=== PATIENT | female | born 1995 | race American Indian/Alaskan Native ===

== ENCOUNTER 2018-04-18 19:52 | Emergency (ER) | payer MEDICAID ==
[2018-04-18 20:00] VITALS: BP 131/83
--- NOTE | 2018-04-18 20:35 | Emergency Department Report ---
Minor Respiratory - HPI Chief Complaint: Syncope Stated Complaint: FEELING FAINT Time Seen by Provider: 04/18/18 20:35 Pain Location: Throat Severity: mild Minor Respiratory: Yes Rhinorrhea, Yes Sore Throat (2/10 and worse with swallowing.), Yes Able to Tolerate Fluids, Yes Cough (congested cough), No Ear Pain, No Sick Contacts, No Hemoptysis, No Chest Pain (palpitations after drinking red bull and smoke in marijuana), No Shortness of Breath, No Fever Other History: This is a 22-year-old female here presented to the emergency room reported productive cough, runny nose, swollen lymph nodes. Patient's that she drank red bull at 5 PM and had not eaten since noon. She said after drinking red bull started feeling faint recent hard at approximately 1940. She denies passing out. Denies any headache or blurred vision. Denies any chest pain or shortness of breath. Denies any nausea or vomiting. Denies any abdominal pain or back pain. Patient said she is losing her voice due to cough . She also said that she smokes marijuana yesterday. Pain is 2/10 worse with swallowing and coughing and no pain without swelling or coughing. Last menstrual period was 04/10/2018. Patient has a history of gestational diabetes otherwise healthy. ED Review of Systems ROS: Stated complaint: FEELING FAINT Other details as noted in HPI Constitutional: denies: chills, fever Eyes: denies: eye pain, eye discharge, vision change ENT: throat pain, congestion. denies: ear pain, dental pain, epistaxis Respiratory: cough. denies: shortness of breath, SOB with exertion, SOB at rest, stridor, wheezing Cardiovascular: palpitations. denies: chest pain, edema, syncope Gastrointestinal: denies: abdominal pain, nausea, vomiting Skin: denies: rash Neurological: denies: headache, numbness, paresthesias, confusion, abnormal gait, vertigo ED Past Medical Hx - Past Medical History Previous Medical History?: Yes Hx Diabetes: Yes (gestational) - Surgical History Past Surgical History?: No - Family History Family history: hypertension (early) - Social History Smoking Status: Current Every Day Smoker Substance Use Type: Alcohol, Marijuana - Medications Home Medications: Home Medications Medication Instructions Recorded Confirmed Last Taken Type Amoxicillin/K Clav Tab [Augmentin 1 tab PO Q12HR #20 tab 04/18/18 Unknown Rx 875MG TAB] Cetirizine HCl [ZyrTEC] 10 mg PO QAM 14 Days #14 capsule 04/18/18 Unknown Rx Fluticasone [Flonase] 1 spray NS QDAY 14 Days #1 bottle 04/18/18 Unknown Rx Minor Respiratory Exam - Exam General: Vital signs noted. No distress. Alert and acting appropriately. This is a 22-year-old female well-nourished well-developed in no acute distress. HEENT: Yes Moist Mucous Membranes (uvula is midline and oral airways patent), Yes Rhinorrhea (nasal congestion and runny nose), Yes Frontal Tenderness, No Pharyngeal Erythema, No Pharyngeal Exudates, No Conjuctival Injection, No Maxillary Tenderness Ear: Neither TM Bulge (bilateral team congested), Neither TM Erythema, Neither EAC Pain, Neither EAC Discharge Neck: Yes Supple (for range of motion and no C-spine tenderness), No Adenopathy Lungs: Yes Good Air Exchange, Yes Cough (dry cough), No Wheezes, No Ronchi, No Stridor, No Labored Respirations, No Retractions, No Use of Accessory Muscles, No Other Abnormal Lung Sounds Heart: Yes Regular (sinus rhythm at 100 bpm), No Murmur Abdomen: Yes Normal Bowel Sounds (in all quadrants), No Tenderness (nontender to palpate in all quadrants), No Peritoneal Signs Skin: No Rash, No Edema Neurologic: Alert and oriented 3, GCS of 15, speech is clear and fluid, normal gait, negative Romberg and pronator drift, reflexes are normal and no sensory or motor deficit. Musculoskeletal: Unremarkable. No cce. + 2 pulses in all extremities, no neurovascular compromise ED Course Vital Signs 04/18/18 19:59 Temperature 99.0 F Pulse Rate 105 H Respiratory 18 Rate Blood Pressure 131/83 O2 Sat by Pulse 97 Oximetry EKG heart rate is at 100 bpm. - Reevaluation(s) Reevaluation #1: 04/18/18 21:21 Patient given Decadron 10 mg IM and emergency room for sinusitis ED Medical Decision Making - EKG Data -: EKG Interpreted by Me (attending physician) EKG shows normal: sinus rhythm Rate: tachycardia (100 beats per minutes) - EKG Data Interpretation: no acute changes, normal EKG - Medical Decision Making This is a 22-year-old female here report that she has been having in a versus her symptoms over the last week. She was found to have acute bacterial sinusitis with coughing. She had brief episode of dizziness without syncope after drinking a red bull and smoking marijuana but that has cleared up. Noel lambert is able to tolerate oral liquids and she is neurologically intact. Patient was given Decadron 10 mg IM and emergency room and discharged home in stable condition with prescription for Z-Hernesto, Flonase and Zyrtec and to follow up with her primary care physician and 2-3 days and if she does not have a primary care physician to follow-up at [facility] [place]. I encouraged her to refrain from drinking red bull and smoking marijuana and she said ok. - Differential Diagnosis sinusitis, strep pharyngitis, URI,cough and congestion. Pulmonary abdomen: Critical care attestation.: If time is entered above; I have spent that time in minutes in the direct care of this critically ill patient, excluding procedure time. ED Disposition Clinical Impression: Acute bacterial rhinosinusitis Disposition: - TO HOME OR SELFCARE Is pt being admited?: No Does the pt Need Aspirin: No Condition: Stable Instructions: Acute Bacterial Rhinosinusitis (ED) Additional Instructions: Please flush nostrils with saline nasal washes at least 3 times a day Follow-up with primary care physician in 2-3 days and if he do not have a primary care physician follow-up with outside Medical Center If his symptoms return or worsens, return to the emergency room Take medication as prescribed Referrals: [facility] [Outside] - 2-3 Days Forms: Work/School Release Form(ED)
[2018-04-18] MEDS ORDERED: DECADRON IM ONE (20:41)
[2018-04-18 21:13] LABS: Bilirubin,Urine NEG (Negative); Blood,Urine NEG (Negative); Color,Urine Yellow (Yellow); Mucus,Urine FEW /HPF; Protein,Urine <15 mg/dL mg/dL (Negative); Urobilinogen,Urine < 2.0 mg/dL (<2.0); WBC,Urine < 1.0 /HPF (0.0-6.0)
[2018-04-18 21:29] LABS: HCG Qualitative,Urine Negative (Negative)
== END 2018-04-18 21:37 | disposition home or self-care (01) ==
LOC: ED 19:52
DX: J01.90 Acute sinusitis, unspecified (principal); E11.9 Type 2 diabetes mellitus without complications; F17.200 Nicotine dependence, unspecified, uncomplicated
CPT/HCPCS: 81001; 81025; 93005; 93010; 96372; 99283

== ENCOUNTER 2018-06-04 01:29 | Emergency (ER) | payer MEDICAID ==
[2018-06-04 01:35] VITALS: BP 145/88
--- NOTE | 2018-06-04 02:53 | XRay Report ---
PROCEDURE: XR CHEST 1V AP TECHNIQUE: Chest radiograph single view. HISTORY: Chest Pain COMPARISONS: None . FINDINGS: Heart: Normal. Mediastinum/Vessels: Normal. Lungs/Pleural space: Normal. Bony thorax: No acute osseous abnormality. Life support devices: None. IMPRESSION: No acute cardiopulmonary abnormality. This document is electronically signed by Bao Serrano MD., June 04 2018 02:51:27 AM ET
== END 2018-06-04 03:45 | disposition left against medical advice (07) ==
LOC: ED 01:29
DX: R07.89 Other chest pain (principal); Z53.21 Procedure and treatment not carried out due to patient leaving prior to being seen by health care provider
CPT/HCPCS: 71045; 93005; 93010

== ENCOUNTER 2018-06-20 11:31 | Emergency (ER) | payer MEDICAID ==
[2018-06-20 11:56] VITALS: BP 143/75
--- NOTE | 2018-06-20 13:50 | Emergency Department Report ---
ED General Adult HPI - General Chief complaint: Skin Rash Stated complaint: SPIDER BITE Time Seen by Provider: 06/20/18 13:49 Source: patient Mode of arrival: Ambulatory Limitations: No Limitations - History of Present Illness Initial comments: Patient is a 18-year-old female with significant past medical history who presents with left ankle pain going on since yesterday. Patient states that she believes she was bitten by an insect and that she is having some mild pain 3 out of 10 in the left ankle. She is also complaining of having a minor headache as well. Patient has no nausea no vomiting no neck pain fevers chills. Severity scale (0 -10): 7 - Related Data Previous Rx's Medication Instructions Recorded Last Taken Type Amoxicillin/K Clav Tab [Augmentin 1 tab PO Q12HR #20 tab 04/18/18 Unknown Rx 875MG TAB] Cetirizine HCl [ZyrTEC] 10 mg PO QAM 14 Days #14 capsule 04/18/18 Unknown Rx Fluticasone [Flonase] 1 spray NS QDAY 14 Days #1 bottle 04/18/18 Unknown Rx cephALEXin [Keflex] 500 mg PO Q6HR #20 capsule 06/20/18 Unknown Rx Allergies Allergy/AdvReac Type Severity Reaction Status Date / Time No Known Allergies Allergy Unverified 04/18/18 20:05 ED Review of Systems ROS: Stated complaint: SPIDER BITE Other details as noted in HPI Constitutional: denies: chills, fever Eyes: denies: eye pain, eye discharge, vision change ENT: denies: ear pain, throat pain Respiratory: denies: cough, shortness of breath, wheezing Cardiovascular: denies: chest pain, palpitations Endocrine: no symptoms reported Gastrointestinal: denies: abdominal pain, nausea, diarrhea Genitourinary: denies: urgency, dysuria, discharge Musculoskeletal: denies: back pain, joint swelling, arthralgia Skin: rash. denies: lesions Neurological: denies: headache, weakness, paresthesias Psychiatric: denies: anxiety, depression Hematological/Lymphatic: denies: easy bleeding, easy bruising ED Past Medical Hx - Past Medical History Hx Diabetes: Yes (gestational) - Surgical History Past Surgical History?: No - Social History Smoking Status: Never Smoker Substance Use Type: None - Medications Home Medications: Home Medications Medication Instructions Recorded Confirmed Last Taken Type Amoxicillin/K Clav Tab [Augmentin 1 tab PO Q12HR #20 tab 04/18/18 Unknown Rx 875MG TAB] Cetirizine HCl [ZyrTEC] 10 mg PO QAM 14 Days #14 capsule 04/18/18 Unknown Rx Fluticasone [Flonase] 1 spray NS QDAY 14 Days #1 bottle 04/18/18 Unknown Rx cephALEXin [Keflex] 500 mg PO Q6HR #20 capsule 06/20/18 Unknown Rx ED Physical Exam - General Limitations: No Limitations General appearance: alert, in no apparent distress - Head Head exam: Present: atraumatic, normocephalic - Eye Eye exam: Present: normal appearance - ENT ENT exam: Present: mucous membranes moist - Neck Neck exam: Present: normal inspection - Respiratory Respiratory exam: Present: normal lung sounds bilaterally. Absent: respiratory distress - Cardiovascular Cardiovascular Exam: Present: regular rate, normal rhythm. Absent: systolic murmur, diastolic murmur, rubs, gallop - GI/Abdominal GI/Abdominal exam: Present: soft, normal bowel sounds - Extremities Exam Extremities exam: Present: normal inspection - Back Exam Back exam: Present: normal inspection - Neurological Exam Neurological exam: Present: alert, oriented X3 - Psychiatric Psychiatric exam: Present: normal affect, normal mood - Skin Skin exam: Present: warm, dry, intact, normal color, other ([id number] area of induration on left ankle ). Absent: rash ED Course Vital Signs 06/20/18 11:54 Temperature 98.1 F Pulse Rate 89 Respiratory 18 Rate Blood Pressure 143/75 O2 Sat by Pulse 100 Oximetry ED Medical Decision Making - Medical Decision Making Cdx: Insect bite ddx: cellulitis, folliculitis I will give pt antibiotic and send home Critical care attestation.: If time is entered above; I have spent that time in minutes in the direct care of this critically ill patient, excluding procedure time. ED Disposition Clinical Impression: Left ankle pain Qualifiers: Chronicity: acute Qualified Code(s): M25.572 - Pain in left ankle and joints of left foot Insect bite Qualifiers: Encounter type: initial encounter Site of insect bite: ankle Laterality: left Qualified Code(s): S90.562A - Insect bite (nonvenomous), left ankle, initial encounter Disposition: TO HOME OR SELFCARE Is pt being admited?: No Does the pt Need Aspirin: No Condition: Stable Prescriptions: cephALEXin [Keflex] 500 mg PO Q6HR #20 capsule Referrals: NEO CATHERINE MD [Primary Care Provider] - 3-5 Days
== END 2018-06-20 14:41 | disposition home or self-care (01) ==
LOC: ED 11:31
DX: S90.562A Insect bite (nonvenomous), left ankle, initial encounter (principal); R51 Headache; X58.XXXA Exposure to other specified factors, initial encounter; Y93.89 Activity, other specified; Y92.89 Other specified places as the place of occurrence of the external cause; Y99.8 Other external cause status
CPT/HCPCS: 99282

== ENCOUNTER 2018-06-21 01:49 | Emergency (ER) | payer MEDICAID | END 2018-06-21 09:46 | disposition left against medical advice (07) | LOC: ED 01:49 | DX: J34.89 Other specified disorders of nose and nasal sinuses (principal); Z53.21 Procedure and treatment not carried out due to patient leaving prior to being seen by health care provider ==

== ENCOUNTER 2018-08-06 02:46 | Emergency (ER) | payer MEDICAID ==
[2018-08-06 02:58] VITALS: BP 131/90
[2018-08-06 04:29] LABS: Bilirubin,Urine NEG (Negative); Blood,Urine LG (Negative); Color,Urine Yellow (Yellow); Mucus,Urine FEW /HPF; Protein,Urine <15 mg/dL mg/dL (Negative); Urobilinogen,Urine < 2.0 mg/dL (<2.0); WBC,Urine < 1.0 /HPF (0.0-6.0)
--- NOTE | 2018-08-06 06:19 | Emergency Department Report ---
ED Female HPI - General Chief complaint: Urogenital-Female Stated complaint: LOWER BACK PAIN Time Seen by Provider: 08/06/18 06:15 Source: patient Mode of arrival: Ambulatory Limitations: No Limitations - History of Present Illness Initial comments: pt is a 23 y/o aaf who present for right flank pain radiating superpubic, x 3 days, starte with onset of menses , this is an occasional problem for this patient, with recurring bv and uti pt is not sexually active no n/v no fever or chills, does endorse urinary frequency no hematuria. no hx of renal stones MD Complaint: dysuria Onset/Timin -: days(s) Location: other (right flank ) Radiation: suprapubic Severity: moderate Severity scale (0 -10): 3 Quality: aching Consistency: intermittent Improves with: none Worsens with: urination Are you Now?: No Last Menstrual Period: 08/04/18 EDC: 05/11/19 Associated Symptoms: dysuria - Related Data Sexually active: No Previous Rx's Medication Instructions Recorded Last Taken Type Amoxicillin/K Clav Tab [Augmentin 1 tab PO Q12HR #20 tab 04/18/18 Unknown Rx 875MG TAB] Cetirizine HCl [ZyrTEC] 10 mg PO QAM 14 Days #14 capsule 04/18/18 Unknown Rx Fluticasone [Flonase] 1 spray NS QDAY 14 Days #1 bottle 04/18/18 Unknown Rx cephALEXin [Keflex] 500 mg PO Q6HR #20 capsule 06/20/18 Unknown Rx Nitrofurantoin Phillips/M-Cryst 100 mg PO Q12HR 7 Days #14 capsule 08/06/18 Unknown Rx [Macrobid CAP] metroNIDAZOLE [Flagyl] 500 mg PO Q12HR 10 Days #20 tab 08/06/18 Unknown Rx Allergies Allergy/AdvReac Type Severity Reaction Status Date / Time No Known Allergies Allergy Unverified 04/18/18 20:05 ED Review of Systems ROS: Stated complaint: LOWER BACK PAIN Other details as noted in HPI Constitutional: denies: chills, fever Eyes: denies: eye pain, eye discharge, vision change ENT: denies: ear pain, throat pain Respiratory: denies: cough, shortness of breath, wheezing Cardiovascular: denies: chest pain, palpitations Endocrine: no symptoms reported Gastrointestinal: abdominal pain (superpubic ). denies: nausea, vomiting, diarrhea Genitourinary: frequency Musculoskeletal: back pain Skin: denies: rash, lesions Neurological: denies: headache, weakness, paresthesias Psychiatric: denies: anxiety, depression Hematological/Lymphatic: denies: easy bleeding, easy bruising ED Past Medical Hx - Past Medical History Previous Medical History?: Yes Hx Diabetes: Yes (gestational) - Surgical History Past Surgical History?: No - Social History Smoking Status: Never Smoker Substance Use Type: Alcohol - Medications Home Medications: Home Medications Medication Instructions Recorded Confirmed Last Taken Type Amoxicillin/K Clav Tab [Augmentin 1 tab PO Q12HR #20 tab 04/18/18 Unknown Rx 875MG TAB] Cetirizine HCl [ZyrTEC] 10 mg PO QAM 14 Days #14 capsule 04/18/18 Unknown Rx Fluticasone [Flonase] 1 spray NS QDAY 14 Days #1 bottle 04/18/18 Unknown Rx cephALEXin [Keflex] 500 mg PO Q6HR #20 capsule 06/20/18 Unknown Rx Nitrofurantoin Phillips/M-Cryst 100 mg PO Q12HR 7 Days #14 capsule 08/06/18 Unknown Rx [Macrobid CAP] metroNIDAZOLE [Flagyl] 500 mg PO Q12HR 10 Days #20 tab 08/06/18 Unknown Rx ED Physical Exam - General Limitations: No Limitations General appearance: alert, in no apparent distress - Head Head exam: Present: atraumatic, normocephalic - Eye Eye exam: Present: normal appearance - ENT ENT exam: Present: mucous membranes moist - Neck Neck exam: Present: normal inspection - Respiratory Respiratory exam: Present: normal lung sounds bilaterally. Absent: respiratory distress - Cardiovascular Cardiovascular Exam: Present: regular rate, normal rhythm, normal heart sounds. Absent: systolic murmur, diastolic murmur, rubs, gallop - GI/Abdominal GI/Abdominal exam: Present: soft, normal bowel sounds. Absent: distended, tenderness, guarding, rebound, rigid, bruit, hernia - Rectal Rectal exam: Present: deferred - Extremities Exam Extremities exam: Present: normal inspection, full ROM, normal capillary refill. Absent: tenderness - Back Exam Back exam: Present: normal inspection, full ROM. Absent: tenderness, CVA tenderness (R), CVA tenderness (L), muscle spasm, rash noted - Neurological Exam Neurological exam: Present: alert, oriented X3, CN II-XII intact, normal gait. Absent: motor sensory deficit, reflexes normal - Psychiatric Psychiatric exam: Present: normal affect, normal mood - Skin Skin exam: Present: warm, dry, intact, normal color. Absent: rash ED Course Vital Signs 08/06/18 02:57 Temperature 98.4 F Pulse Rate 75 Respiratory 18 Rate Blood Pressure 131/90 O2 Sat by Pulse 99 Oximetry ED Medical Decision Making - Lab Data Labs 08/06/18 Unknown Urine Color Yellow Urine Turbidity Slightly-cloudy Urine pH 6.0 Ur Specific [place] 1.017 Urine Protein <15 mg/dl Urine Glucose (UA) Neg Urine Ketones Neg Urine Blood Lg Urine Nitrite Neg Urine Bilirubin Neg Urine Urobilinogen < 2.0 Ur Leukocyte Esterase Neg Urine WBC (Auto) < 1.0 Urine RBC (Auto) 3.0 U Epithel Cells (Auto) 1.0 Urine Mucus Few - Medical Decision Making this is urinary frequency, no fever no chills no hematuria no flow probelm pt states recurring problem for her, with some menses, plan, macrobid , flagyl, follow up with medical insurance clerk in 3-5 days , return to emergency if symptoms worsen, Critical care attestation.: If time is entered above; I have spent that time in minutes in the direct care of this critically ill patient, excluding procedure time. ED Disposition Clinical Impression: Dysuria, Dysmenorrhea Disposition: TO HOME OR SELFCARE Is pt being admited?: No Does the pt Need Aspirin: No Condition: Stable Instructions: Dysuria (ED), Dysmenorrhea (ED) Prescriptions: metroNIDAZOLE [Flagyl] 500 mg PO Q12HR 10 Days #20 tab Nitrofurantoin Phillips/M-Cryst [Macrobid CAP] 100 mg PO Q12HR 7 Days #14 capsule Referrals: LAURA EVANS MD [Staff Physician] - 3-5 Days Forms: Work/School Release Form(ED) Time of Disposition: 06:25
== END 2018-08-06 06:30 | disposition home or self-care (01) ==
LOC: ED 02:46
DX: N94.6 Dysmenorrhea, unspecified (principal); R30.0 Dysuria
CPT/HCPCS: 81001

== ENCOUNTER 2018-08-26 02:07 | Emergency (ER) | payer MEDICAID ==
[2018-08-26 02:54] LABS: Basophils # (Auto) 0.1 K/mm3 (0.0-0.1); Basophils % (Auto) 0.4 % (0.0-1.8); Eosinophils # (Auto) 0.3 K/mm3 (0.0-0.4); Eosinophils % (Auto) 2.3 % (0.0-4.3); Hematocrit 39.5 % (30.3-42.9); Hemoglobin 13.2 gm/dl (10.1-14.3); Lymphocytes # (Auto) 4.1 K/mm3 (1.2-5.4); Lymphocytes % (Auto) 34.6 % (13.4-35.0); Mean Corpuscular HGB Conc 33 % (30-34); Mean Corpuscular Volume 85 fl (79-97); Monocytes # (Auto) 0.8 K/mm3 (0.0-0.8); Monocytes % (Auto) 6.9 % (0.0-7.3); Platelet Count 301 K/mm3 (140-440); Red Blood Count 4.63 M/mm3 (3.65-5.03); Red Cell Distribution Width 14.1 % (13.2-15.2)
[2018-08-26 03:13] LABS: Bilirubin,Urine NEG (Negative); Blood,Urine NEG (Negative); Color,Urine Straw (Yellow); Mucus,Urine FEW /HPF; Protein,Urine <15 mg/dL mg/dL (Negative); Urobilinogen,Urine < 2.0 mg/dL (<2.0); WBC,Urine < 1.0 /HPF (0.0-6.0)
[2018-08-26 03:15] LABS: Alanine Aminotransferase 11 units/L (7-56); Albumin 3.8 g/dL (3.9-5); BUN/Creatinine Ratio 16; Blood Urea Nitrogen 11 mg/dL (7-17); Hemolysis Index 2
[2018-08-26] MEDS ORDERED: TORADOL IV ONE (03:21)
[2018-08-26] MEDS ORDERED: NACL 0.9% 1000 ML 1,000 ML IV ONE (03:21)
[2018-08-26] MEDS ORDERED: ZOFRAN IV ONE (03:21)
--- NOTE | 2018-08-26 06:27 | Emergency Department Report ---
ED Back Pain/Injury HPI - General Chief Complaint: Back Pain/Injury Stated Complaint: BACK PAIN/SOB Time Seen by Provider: 08/26/18 03:10 Source: patient Limitations: No Limitations - History of Present Illness Initial Comments: Patient is a 23-year-old -[place] female with no past medical history presents to the ED with a complaint of acute onset persistent nontraumatic low back pain that radiates to her lower abdomen diffusely with dysuria, urinary frequency and urgency, diffuse body aches and pains, nasal and sinus congestion, dry cough and shortness of breath for the last 2 weeks. Patient states that her symptoms got worse in the last 2 days says that she developed diffuse body aches and pains and generalized fatigue. Patient denies headache, fever, chills, chest pain, dizziness, neck pain, nausea, vomiting, diarrhea, vaginal bleeding, vaginal discharge, sore throat and change in urination or syncope. MD Complaint: back pain, other (dysuria, urinary urgency and frequency) -: Sudden, week(s) (2) Similar Symptoms Previously: No Place: home Radiation: abdomen (lower), flank Severity: severe Severity scale (0 -10): 7 Quality: sharp, aching Consistency: constant Improves With: none Worsens With: none Associated Symptoms: cough, abdominal pain (lower abdomen), malaise, shortness of breath. denies: confusion, weakness, chest pain, numbness, difficulty walking, difficulty urinating, diaphoresis, incontinence, fever/chills, constipation, headaches, loss of appetite, nausea/vomiting, rash, seizure, syncope - Related Data Previous Rx's Medication Instructions Recorded Last Taken Type Amoxicillin/K Clav Tab [Augmentin 1 tab PO Q12HR #20 tab 04/18/18 Unknown Rx 875MG TAB] Cetirizine HCl [ZyrTEC] 10 mg PO QAM 14 Days #14 capsule 04/18/18 Unknown Rx Fluticasone [Flonase] 1 spray NS QDAY 14 Days #1 bottle 04/18/18 Unknown Rx cephALEXin [Keflex] 500 mg PO Q6HR #20 capsule 06/20/18 Unknown Rx Nitrofurantoin Jefferson/M-Cryst 100 mg PO Q12HR 7 Days #14 capsule 08/06/18 Unknown Rx [Macrobid CAP] metroNIDAZOLE [Flagyl] 500 mg PO Q12HR 10 Days #20 tab 08/06/18 Unknown Rx Acetaminophen/Codeine [Tylenol 1 tab PO Q4HR PRN #10 tablet 08/26/18 Unknown Rx /Codeine # 3 tab] Cyclobenzaprine [Flexeril] 10 mg PO Q8H PRN #15 tablet 08/26/18 Unknown Rx Ketorolac [Toradol] 10 mg PO Q8H PRN #20 tablet 08/26/18 Unknown Rx Allergies Allergy/AdvReac Type Severity Reaction Status Date / Time No Known Allergies Allergy Unverified 04/18/18 20:05 ED Review of Systems ROS: Stated complaint: BACK PAIN/SOB Other details as noted in HPI Comment: All other systems reviewed and negative Constitutional: malaise, weakness. denies: chills, diaphoresis, fever Eyes: denies: eye pain, eye discharge, vision change ENT: congestion. denies: ear pain, throat pain, dental pain, hearing loss Respiratory: cough, shortness of breath. denies: wheezing Cardiovascular: denies: chest pain, palpitations, dyspnea on exertion, edema, syncope, paroxysmal nocturnal dyspnea Endocrine: no symptoms reported. denies: see HPI, excessive sweating, flushing, intolerance to cold, intolerance to heat, increased hunger, increased thirst, increased urine, unexplained weight gain, unexplained weight loss Gastrointestinal: abdominal pain (lower diffusely). denies: nausea, vomiting, diarrhea, constipation, hematemesis, hematochezia Genitourinary: urgency, dysuria, frequency. denies: hematuria, discharge, abnormal menses, dyspareunia Musculoskeletal: back pain, arthralgia, myalgia. denies: joint swelling Skin: denies: rash, lesions, change in color, change in hair/nails, pruritus Neurological: denies: headache, weakness, paresthesias, confusion, abnormal gait, vertigo Psychiatric: denies: anxiety, depression Hematological/Lymphatic: denies: easy bleeding, easy bruising ED Past Medical Hx - Past Medical History Previous Medical History?: Yes Hx Diabetes: Yes (gestational) - Surgical History Past Surgical History?: No - Social History Smoking Status: Never Smoker Substance Use Type: None - Medications Home Medications: Home Medications Medication Instructions Recorded Confirmed Last Taken Type Amoxicillin/K Clav Tab [Augmentin 1 tab PO Q12HR #20 tab 04/18/18 Unknown Rx 875MG TAB] Cetirizine HCl [ZyrTEC] 10 mg PO QAM 14 Days #14 capsule 04/18/18 Unknown Rx Fluticasone [Flonase] 1 spray NS QDAY 14 Days #1 bottle 04/18/18 Unknown Rx cephALEXin [Keflex] 500 mg PO Q6HR #20 capsule 06/20/18 Unknown Rx Nitrofurantoin Jefferson/M-Cryst 100 mg PO Q12HR 7 Days #14 capsule 08/06/18 Unknown Rx [Macrobid CAP] metroNIDAZOLE [Flagyl] 500 mg PO Q12HR 10 Days #20 tab 08/06/18 Unknown Rx Acetaminophen/Codeine [Tylenol 1 tab PO Q4HR PRN #10 tablet 08/26/18 Unknown Rx /Codeine # 3 tab] Cyclobenzaprine [Flexeril] 10 mg PO Q8H PRN #15 tablet 08/26/18 Unknown Rx Ketorolac [Toradol] 10 mg PO Q8H PRN #20 tablet 08/26/18 Unknown Rx ED Physical Exam - General Limitations: No Limitations General appearance: alert, in no apparent distress - Head Head exam: Present: atraumatic, normocephalic, normal inspection - Eye Eye exam: Present: normal appearance, PERRL, EOMI. Absent: scleral icterus, conjunctival injection, nystagmus, periorbital swelling, periorbital tenderness Pupils: Present: normal accommodation - ENT ENT exam: Present: normal exam, normal orophraynx, mucous membranes moist, TM's normal bilaterally, normal external ear exam - Neck Neck exam: Present: normal inspection, full ROM. Absent: tenderness, lymphadenopathy - Respiratory Respiratory exam: Present: normal lung sounds bilaterally. Absent: respiratory distress, wheezes, rales, rhonchi, chest wall tenderness, accessory muscle use, decreased breath sounds, prolonged expiratory - Cardiovascular Cardiovascular Exam: Present: regular rate, normal rhythm, normal heart sounds. Absent: systolic murmur, diastolic murmur, rubs, gallop - GI/Abdominal GI/Abdominal exam: Present: soft, tenderness (mildlu diffuse lower abdomen, no guarding or rebound), normal bowel sounds. Absent: distended, guarding, rebound, hyperactive bowel sounds, hypoactive bowel sounds, organomegaly - Rectal Rectal exam: Present: deferred - Extremities Exam Extremities exam: Present: normal inspection, full ROM, normal capillary refill - Back Exam Back exam: Present: normal inspection, tenderness (Palpable lumbosacral paraspinal musculoskeletal tenderness), paraspinal tenderness (lumbosacral paraspinal musculoskeletal tenderness) - Neurological Exam Neurological exam: Present: alert, oriented X3, CN II-XII intact, normal gait, reflexes normal - Psychiatric Psychiatric exam: Present: normal affect, normal mood - Skin Skin exam: Present: warm, dry, intact, normal color. Absent: rash ED Course Vital Signs 08/26/18 02:18 Temperature 98.4 F Pulse Rate 88 Respiratory 20 Rate Blood Pressure 143/66 O2 Sat by Pulse 97 Oximetry - Reevaluation(s) Reevaluation #1: 08/26/18 06:30 Patient is alert and oriented 3 and is not in any distress. The vital signs are stable. Blood tests results were reviewed and are unremarkable except for acute leukocytosis of 11,900. The rest of the lab test results are unremarkable including urinalysis. Patient was treated for pain in the ED with medications. On reevaluation, patient's pain is well controlled with medications, and is resting comfortably sleeping in the room while awaiting other tests. Abdomen pelvis CT scan with contrast was ordered. The abdomen and pelvis CT scan with contrast shows a 1.6 cm left ovarian cyst. On reevaluation, the patient's pain is well controlled and patient will be sent home on pain medications and muscle relaxants. Patient advised to follow up with her PCP or [facility] physician in 5- 7 days for reevaluation. Patient was advised to return to the ED immediately if symptoms get worse. 08/26/18 07:17 ED Medical Decision Making - Lab Data Result diagrams: 08/26/18 02:27 08/26/18 02:27 - Radiology Data Abdomen-pelvis CT scan with contrast shows ovarian cyst measuring 1.6 cm in left ovary - Medical Decision Making Patient is alert and oriented 3 and is not in any distress. The vital signs are stable. Blood tests results were reviewed and are unremarkable except for acute leukocytosis of 11,900. The rest of the lab test results are unremarkable including urinalysis. Patient was treated for pain in the ED with medications. On reevaluation, patient's pain is well controlled with medications, and is resting comfortably sleeping in the room while awaiting other tests. Abdomen pelvis CT scan with contrast was ordered. The abdomen and pelvis CT scan with contrast shows a 1.6 cm left ovarian cyst. On reevaluation, the patient's pain is well controlled and patient will be sent home on pain medications and muscle relaxants. Patient advised to follow up with her PCP or [facility] physician in 5- 7 days for reevaluation. Patient was advised to return to the ED immediately if symptoms get worse. - Differential Diagnosis Abdominal pain, ovarian cyst, muscle spasm of back Critical care attestation.: If time is entered above; I have spent that time in minutes in the direct care of this critically ill patient, excluding procedure time. ED Disposition Clinical Impression: Spasm of muscle of lower back, Lower abdominal pain, Left ovarian cyst Disposition: TO HOME OR SELFCARE Is pt being admited?: No Does the pt Need Aspirin: No Condition: Stable Instructions: Muscle Spasm (ED), Ovarian Cyst (ED), Acute Abdominal Pain (ED) Additional Instructions: Take medications with food, drink plenty of fluids and follow-up with her [facility] physician in 5-7 days for reevaluation or return to the ED immediately if symptoms get worse. Prescriptions: Cyclobenzaprine [Flexeril] 10 mg PO Q8H PRN #15 tablet PRN Reason: Muscle Spasm Ketorolac [Toradol] 10 mg PO Q8H PRN #20 tablet PRN Reason: Pain Acetaminophen/Codeine [Tylenol /Codeine # 3 tab] 1 tab PO Q4HR PRN #10 tablet PRN Reason: Pain Referrals: NEO CATHERINE MD [Primary Care Provider] - 3-5 Days Forms: Work/School Release Form(ED) Time of Disposition: 07:22 Print Language: ZAMBIAN
--- NOTE | 2018-08-26 06:53 | Cat Scan Report ---
EXAM: CT ABDOMEN PELVIS W CON HISTORY: pelvic pain TECHNIQUE: Spiral axial CT images are obtained through the abdomen and pelvis without the administrat ion of oral contrast and with the administration of intravenous contrast. Additional coronal and sagi ttal reformatted images are reconstructed. COMPARISON: None available. FINDINGS: GASTROINTESTINAL TRACT: There are no stigmata of bowel obstruction, colitis or diverticulitis. A norm al-appearing appendix is seen. GENITOURINARY SYSTEM: The kidneys are unremarkable. There is no ureteral calculus or stigmata of obst ructive uropathy. The urinary bladder is grossly unremarkable for a non-dedicated exam. CT ABDOMEN: The liver, spleen, pancreas, adrenal glands, gallbladder, aorta, and inferior vena cava a re within normal limits for a noncontrast CT scan. There is no intra-abdominal or retroperitoneal ly mphadenopathy, free fluid, or free air seen. No abdominal herniation is noted. CT PELVIS: Approximately 1.6 cm left ovarian cyst, presumed to represent a functional cyst in this ag e category. Consider correlation with a followup ultrasound for further characterization as clinicall y warranted. There is an approximately 2.1 cm AP by 1.5 cm transverse irregular right ovarian cyst wh ich may represent a partially collapsed or ruptured cyst. The uterus and adnexa are otherwise grossly unremarkable for a CT scan. The visualized bony structures are within normal limits. No pelvic sidewall or inguinal lymphadeno rashmi is seen. No inguinal herniation is noted. No free fluid or free air is seen. LUNG BASES: The lung bases are clear. IMPRESSION: 1. Approximately 1.6 cm left ovarian cyst, presumed to represent a functional cyst in this age categ ory. Consider correlation with a followup ultrasound for further characterization as clinically warra nted. 2. Approximately 2.1 cm AP by 1.5 cm transverse irregular right ovarian cyst which may represent a p artially collapsed or ruptured cyst. Consider correlation with a followup ultrasound for further sumit racterization as clinically warranted. 3. No evidence for renal stone disease or obstructive uropathy. 4. No evidence for acute appendicitis, bowel obstruction, colitis or diverticulitis seen. 5. No free fluid, free air, mass lesions, or lymphadenopathy seen. This document is electronically signed by Moris Rai MD., August 26 2018 06:51:48 AM ET
[2018-08-26 08:03] VITALS: BP 110/54
== END 2018-08-26 08:01 | disposition home or self-care (01) ==
LOC: ED 02:07
DX: N83.202 Unspecified ovarian cyst, left side (principal); M62.830 Muscle spasm of back; Z79.2 Long term (current) use of antibiotics; Z79.899 Other long term (current) drug therapy
CPT/HCPCS: 36415; 74177; 80053; 81001; 84703; 85025; 96374; 96375; 99284; J1885; J2405; J7030; Q9967

== ENCOUNTER 2019-03-21 00:31 | Emergency (ER) | payer MEDICAID | END 2019-03-21 03:21 | LOC: ED 00:31 | DX: R42 Dizziness and giddiness (principal); Z53.21 Procedure and treatment not carried out due to patient leaving prior to being seen by health care provider ==